=== PATIENT | female | born 1980 | race Two or more races ===

== ENCOUNTER 2017-03-26 08:27 | Emergency (ER) | payer BC ==
[~2017-03-26] VITALS: Ht 154.9 cm; Wt 75.7 kg
[2017-03-26 08:42] VITALS: BP 134/86
[2017-03-26] MEDS ORDERED: KETOROLAC TROMETH 60MG/2ML VIAL IM ONE (10:15)
== END 2017-03-26 10:22 | disposition home or self-care (01) ==
LOC: ER 08:27
DX: J32.9 Chronic sinusitis, unspecified (principal)
CPT/HCPCS: 70450; 81025; 96372; 99284; J1885